=== PATIENT | male | born 1980 ===

== ENCOUNTER 2017-09-18 15:55 | Emergency (ER) | payer OTHER ==
[~2017-09-18] VITALS: Ht 157.5 cm; Wt 81.7 kg
[~2017-09-18 15:55] MED LIST: ALBU90OI INH; AMOX500 PO; Amoxicillin875 MG PO; BENZ100A PO; CODGUAEL PO; CRUTCH3 USE; CYCL10 PO; GUAI600ER PO; GUAPHELA PO; HYDACE5 PO; HYDGUAL120 PO; IBUP800 PO; NAPR500 PO; OXYACE5T PO; PENVK500 PO; Percocet 5-3251 EACH PO; RXCYCL10 PO; RXHYDACE PO; SULTRIDS PO
== END 2017-09-18 17:17 | disposition home or self-care (01) ==
LOC: ER 15:55
DX: M25.512 Pain in left shoulder (principal); Z91.013 Allergy to seafood; F17.200 Nicotine dependence, unspecified, uncomplicated
CPT/HCPCS: 96372; 99283; J1885

== ENCOUNTER 2017-11-30 14:32 | Emergency (ER) | payer OTHER ==
[~2017-11-30] VITALS: Ht 157.5 cm; Wt 81.7 kg
[2017-11-30 15:08] LABS: Source, Urine Clean Catch
[2017-11-30] MEDS ORDERED: Keflex500 MG PO (15:09)
[2017-11-30 15:11] LABS: Appearance, Urine Clear (Clear); Bilirubin, Urine Neg (Neg); Blood, Urine Neg (Neg); Color, Urine Yellow (P-Yellow); Glucose Qualitative, Urine Neg (Neg); Ketones, Urine Neg (Neg); Leukocyte Esterase, Urine Neg (Neg); Nitrite, Urine Neg (Neg); Protein, Urine Neg (Neg); Urobilinogen, Urine NORM (Normal)
== END 2017-11-30 15:14 | disposition home or self-care (01) ==
LOC: ER 14:32
PROVIDERS: Physician Assistant
DX: N39.0 Urinary tract infection, site not specified (principal); Z91.013 Allergy to seafood; Z87.891 Personal history of nicotine dependence
CPT/HCPCS: 81003; 82947; 99283

== ENCOUNTER 2018-09-16 10:45 | Emergency (ER) | payer OTHER ==
[~2018-09-16] VITALS: Ht 215.9 cm; Wt 81.7 kg
[~2018-09-16 10:45] MED LIST changes: +Keflex500 MG PO
== END 2018-09-16 12:56 | disposition home or self-care (01) ==
LOC: ER 10:45
DX: G44.209 Tension-type headache, unspecified, not intractable (principal); Z91.013 Allergy to seafood; Z87.891 Personal history of nicotine dependence
CPT/HCPCS: 70450; 99284-25

== ENCOUNTER 2019-03-27 23:28 | Inpatient (IN) | payer OTHER ==
[~2019-03-27] VITALS: Ht 157.5 cm; Wt 98.2 kg
[2019-03-28 00:56] LABS: BASOPHILS ABSOLUTE AUTO 0.11 K/mm3 (0.00-0.23); BASOPHILS PERCENT AUTO 1 % (0-2); EOSINOPHILS ABSOLUTE AUTO 0.88 K/mm3 (0.00-0.68); EOSINOPHILS PERCENT AUTO 7 % (0-6); Hematocrit 41.7 % (37.0-53.0); IMMATURE GRAN ABSOLUTE AUTO 0.07 K/mm3 (0.00-0.10); IMMATURE GRAN PERCENT AUTO 1 % (0-1); LYMPHOCYTES ABSOLUTE AUTO 4.09 K/mm3 (0.84-5.20); LYMPHOCYTES PERCENT AUTO 32 % (21-46); MONOCYTES ABSOLUTE AUTO 1.58 K/mm3 (0.16-1.47); MONOCYTES PERCENT AUTO 13 % (4-13); Mean Corpuscular HGB 28.7 pg (26.0-34.0); Mean Corpuscular HGB Conc 33.6 g/dL (31.5-36.5); Mean Platelet Volume 8.9 fL (9.1-12.4); NEUTROPHILS ABSOLUTE AUTO 5.96 K/mm3 (1.96-9.15); NEUTROPHILS PERCENT AUTO 47 % (41-73); Platelet Count 331 K/mm3 (150-400); RDW Coefficient Variation 12.5 % (11.7-14.2); RDW Standard Deviation 38.8 fL (35.1-46.3); Red Blood Cell Count 4.87 M/mm3 (4.30-5.90); White Blood Cell Count 12.69 K/mm3 (4.00-11.30)
[2019-03-28 01:02] LABS: Source, Urine Clean Catch
[2019-03-28 01:03] LABS: Bilirubin, Urine Neg (Neg); Blood, Urine 2+ (Neg); Glucose Qualitative, Urine Neg (Neg); Ketones, Urine Neg (Neg); Leukocyte Esterase, Urine Neg (Neg); Nitrite, Urine Neg (Neg); Protein, Urine Neg (Neg); Urobilinogen, Urine NORM (Normal)
[2019-03-28 01:03] LABS: Mean Corpuscular Volume 86 fL (80-100)
[2019-03-28 01:04] LABS: Appearance, Urine Clear (Clear); Color, Urine Yellow (P-Yellow)
[2019-03-28 01:09] LABS: Alanine Aminotransfer (ALT/SGP 95 U/L (12-78); Albumin/Globulin Ratio 1.1 (0.8-1.8); Alk Phos 67 U/L (50-136); Anion Gap 9 mmol/L (6-16); Aspartate Aminotrans (AST/SGOT 40 U/L (12-37); Bilirubin, Total 0.3 mg/dL (0.1-1.0); Blood Urea Nitrogen 19 mg/dL (8-24); CO2, Blood 24 mmol/L (21-32); Calcium, Blood 8.7 mg/dL (8.5-10.1); Chloride, Blood 106 mmol/L (98-108); Creatinine, Blood 0.76 mg/dL (0.60-1.20); Globulin, Blood 3.7 g/dL (2.2-4.0); Glomerular Filtration Rate >60 (60-); Glucose, Blood 117 mg/dL (70-99); Potassium, Blood 3.6 mmol/L (3.5-5.5); Sodium, Blood 139 mmol/L (136-145); Total Protein, Blood 7.7 g/dL (6.4-8.2)
[2019-03-28 01:12] LABS: Amorphous Light (0-Heavy); Bacteria Not Seen /hpf; Mucus Light (0-Heavy); Red Blood Cells, Urine 0-2 /hpf (0-2); Squamous Epithelial Cells Not Seen /hpf (Few); White Blood Cells, Urine Rare /hpf (0-5)
--- NOTE | 2019-03-28 06:36 | NUR ---
SHIFT SUMMARY PT NEW ADMIT THIS AM. AAOX4. NPO. DISCOMFORT CONTROLLED WITH 0.5MG IV DILAUDID X1 SINCE ADMISSION. NO NAUSEA/EMESIS. ORIENTED TO ROOM + CALL LIGHT IN REACH. FATHER AT BEDSIDE. QUESTIONS ANSWERED REGARDING TX. IVF PER ORDERS. ABD US TO BE DONE THIS AM PER ORDERS. PT RESTING IN BED AT THIS TIME, NADN, WITH CALL LIGHT IN REACH.
--- NOTE | 2019-03-28 14:11 | NUR ---
PT TO DAY SURGERY AT APPROX 1400.
--- NOTE | 2019-03-28 15:49 | NUR ---
FAMILY UPDATED ON SURGICAL START TIME.
--- NOTE | 2019-03-28 17:30 | NUR ---
POST OP S/P LAP RENETTA. POST OP VS IN PROGRESS AND STABLE. MEDICATED WITH 25 MCG FENTANYL IN PACU RIGHT BEFORE ARRIVAL TO UNIT. PT ABLE TO STAND FROM GURNEY TO BED WITH SBA. LAP SITES X4 TO ABD ARE CDI WITH SCANT SS DRAINAGE TO UMBILICAL SITE. OFFERING SMALL SIPS OF WATER AND ICE CHIPS. IVF INFUSING PER ORDERS. FAMILY PRESENT AT BEDSIDE FOR SUPPORT. CALL LIGHT WITHIN REACH.
[2019-03-28] MEDS ORDERED: OXYC5 PO (17:54)
--- NOTE | 2019-03-28 20:11 | NUR ---
DISCHARGE SUMMARY: PT DISCHARGED HOME WITH FAMILY AT APPROX 1950. PT EDUCATED ON PAIN MANAGEMENT AND S/SX OF INFECTION. PT ENCOURAGED TO TAKE SMALL FREQUENT WALKS AND EAT A DIET TOLERATED. PT DENIED N/V AND REPORTED GOOD PAIN MANAGEMENT PRIOR TO DISCHARGE. PT REPORTED HE UNDERSTOOD THE EDUCATION PROVIDED. ALL QUESTIONS WERE ANSWERED.
--- NOTE | 2019-03-30 10:48 | NUR ---
03/30/19 1048 Hayde David VERIFICATIONS: EDIT CHART.
== END 2019-03-28 19:50 | disposition home or self-care (01) | DRG 419 ==
LOC: ER 23:28 → SURS 03-28 04:41
PROVIDERS: Physician Assistant; ADMIT Surgery
PROC: BF131ZZ Fluoroscopy of Gallbladder and Bile Ducts using Low Osmolar Contrast (ICD-10-PCS; 2019-03-28)
PROC: 0FT44ZZ Resection of Gallbladder, Percutaneous Endoscopic Approach (ICD-10-PCS; principal; 2019-03-28 14:30)
DX: K80.10 Calculus of gallbladder with chronic cholecystitis without obstruction (principal); Z87.891 Personal history of nicotine dependence
CPT/HCPCS: 36415; 74300; 76705; 80053; 81001; 83690; 85025; 88304; 96365; 99285-25; C1729; J0690; J1100; J1170; J1885; J2250; J2405; J2543; J2704; J3010; J7030; J7120

== ENCOUNTER 2021-07-31 18:17 | Emergency (ER) | payer OTHER ==
[~2021-07-31] VITALS: Ht 160 cm; Wt 83.9 kg
[~2021-07-31 18:17] MED LIST changes: +OXYC5 PO
[2021-07-31] MEDS ORDERED: IBUP400 PO (19:11)
== END 2021-07-31 19:24 | disposition home or self-care (01) ==
LOC: ER 18:17
DX: M79.621 Pain in right upper arm (principal); Z91.013 Allergy to seafood; Z87.891 Personal history of nicotine dependence
CPT/HCPCS: 99283